=== PATIENT | male | born 1960 | race Hispanic/Latino ===

== ENCOUNTER 2020-01-29 08:09 | Outpatient (CLI) | payer BC, MEDICARE ==
--- NOTE | 2020-01-29 11:03 | ULT ---
ULTRASOUND BILATERAL RENAL STANDARD: HISTORY: Polycistic kidneys. COMPARISON: None. FINDINGS: Real-time, sim scale, and color evaluation of the kidneys and urinary bladder was performed. There is cystic replacement of the parenchyma of both kidneys. There is a transplanted kidney which measures 8.7 x 4 x 4.7 cm without mass, hydronephrosis, or abnormal calcifications. The arcuate resi stive indices are normal for a transplanted kidney. The renal artery peak systolic velocity is 192 c m/s. There appears to be a small fluid collection adjacent to the right kidney which may reflect a periton eal occlusion cyst. The urinary bladder is unremarkable. IMPRESSION: 1. 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 2. Small anechoic fluid collection adjacent to the transplanted kidney may reflect a peritoneal incl usion cyst or lymphocele. This is incompletely evaluated on this ultrasound. 3. Polycystic kidneys of the [place] kidneys. POS: HOME
--- NOTE | 2020-01-29 11:17 | ULT ---
Please see the separately dictated, concurrently performed hepatic Doppler ultrasound for details con cerning the hepatic vasculature. POS: [facility]
--- NOTE | 2020-01-29 11:17 | ULT ---
HEPATIC DUPLEX ULTRASOUND: INDICATION: Elevated bilirubin. COMPARISON: CT of the abdomen and pelvis with contrast dated 10/16/2016. TECHNIQUE: Camargo scale, color Doppler, with spectral Doppler images were obtained of the liver, pancreas, gallbla dder, and spleen. Spectral color Doppler evaluation was performed of the hepatic vasculature. FINDINGS: As seen on the comparison CT examination, numerous cysts filling the hepatic parenchyma. The largest is seen within the right hepatic lobe measuring 11.2 x 12.4 cm. There is an additional 11.2 x 11.1 cm cyst within the right hepatic lobe. Appropriate hepatopetal flow is seen within the hepatic vasculature. There is layered density within the gallbladder suspicious for sludge. No gallbladder wall thickenin g, sonographic Brothers's sign, or pericholecystic fluid is evident. The common bile duct measured 5.2 mm. There are numerous cystic abnormalities from the kidney and liver limiting visualization of the pancr eas. Visualized aspects of the IVC and aorta appear within normal limits. No free fluid is identified. The left kidney measured approximately 15.9 x 8.6 x 8.6 cm. The right kidney measured 19.7 x 7.7 x 1 0.3 cm. The spleen measured 10.9 cm. The liver measured 21.4 cm in length. IMPRESSION: 1. 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 2. Appropriate hepatopetal flow within the hepatic vasculature. 3. Gallbladder sludge without sonographic evidence of acute cholecystitis. POS: [facility]
== END 2020-01-29 08:10 | disposition home or self-care (01) ==
LOC: SCSULT 08:09
PROVIDERS: ATTEND Internal Medicine Hematology & Oncology
DX: T86.10 Unspecified complication of kidney transplant (principal); E80.7 Disorder of bilirubin metabolism, unspecified; D75.1 Secondary polycythemia; Q61.3 Polycystic kidney, unspecified; Q44.6 Cystic disease of liver; K82.8 Other specified diseases of gallbladder
CPT/HCPCS: 76705; 76770; 93975